=== PATIENT | female | born 1990 | race Hispanic/Latino ===

== ENCOUNTER 2016-06-18 18:33 | Emergency (ER) | payer SELFPAY ==
[~2016-06-18] VITALS: Ht 175.3 cm; Wt 87.9 kg
[2016-06-18 19:25] LABS: HEMATOCRIT 41.9 % (36.0-46.0); MCH 27.8 PG (29.0-34.0); MCHC 32.9 G/DL (30.0-36.0); MCV 84.5 FL (83-99); MEAN PLAT.VOLUME 8.6 uM^3 (9.5-12.4); PLATELET COUNT 419 K/uL (156-360); RBC DIS.WIDTH-CV 12.7 % (11.8-14.6); RBC DIS.WIDTH-SD 38.4 % (39-53); RED BLOOD COUNT 4.96 M/uL (3.80-5.20); WHITE BLOOD COUNT 13.8 K/uL (4.1-10.2)
[2016-06-18 20:25] LABS: QUANTITATIVE HCG < 4.0 MIU/ML
[2016-06-18 20:29] LABS: CHLORIDE 106 mEq/L (99-109); POTASSIUM 3.3 mEq/L (3.7-5.4); SODIUM 141 mEq/L (136-147)
[2016-06-18 20:30] LABS: GLUCOSE 121 mg/dL (70-99)
[2016-06-18 20:32] LABS: ANION GAP 12 MEQ/L (2-14)
[2016-06-18 20:35] LABS: UREA NITROGEN (BUN) 10 mg/dL (9-23)
[2016-06-18 20:38] LABS: GFR ESTIMATE (CALCULATED) > 59 mL/min/
[2016-06-18 21:05] LABS: ADD MIUA? YES; BILIRUBIN NEGATIVE; BLOOD LARGE; GLUCOSE (STRIP) NEGATIVE; KETONES NEGATIVE; LEUKOCYTES MODERATE; NITRITE NEGATIVE; PROTEIN (STRIP) 30; SPECIFIC GRAVITY 1.008 (1.000-1.030); UROBILINOGEN 0.2 MG/DL (0.2-1.0)
[2016-06-18 21:07] LABS: COLOR LT.RED ((YELLOW))
[2016-06-18 21:25] LABS: RED BLOOD CELLS 30-40 /HPF (0-5)
[2016-06-18 21:27] LABS: BACTERIA 1+ /HPF; CASTS NONE SEEN /LPF; CRYSTALS NONE SEEN; EPITHELIAL CELLS 1+ /HPF; MUCUS TRACE /LPF; UCUL ADDED? NO
[2016-06-18 22:34] VITALS: BP 102/67
== END 2016-06-18 22:43 | disposition home or self-care (01) ==
LOC: EME 18:33
PROVIDERS: Nurse Practitioner Family
DX: N93.9 Abnormal uterine and vaginal bleeding, unspecified (principal); R10.2 Pelvic and perineal pain; N83.202 Unspecified ovarian cyst, left side
CPT/HCPCS: 76856; 80048; 81003; 84702; 85027; 99281; 99284